=== PATIENT | female | born 1970 ===

== ENCOUNTER 2017-07-21 08:15 | Inpatient (IN) | payer OTHER ==
[~2017-07-21] VITALS: Ht 167.6 cm; Wt 86.2 kg
[2017-07-22] MEDS ORDERED: COZAAR50 MG PO (14:13)
[2017-07-28] MEDS ORDERED: Mylicon 125MG PO (07:38)
[2017-07-28] MEDS ORDERED: DOCUSATE SODIU100 MG PO (07:38)
[2017-07-28] MEDS ORDERED: GABAPENTIN600 MG PO (07:38)
[2017-07-28] MEDS ORDERED: IBUPROFEN600 MG PO (07:38)
== END 2017-07-28 10:53 | disposition home or self-care (01) | DRG 743 ==
LOC: OB/GYN 07-26 06:00 → O/R 07-26 06:00 → OB/GYN 07-26 20:12
PROVIDERS: Obstetrics & Gynecology
PROC: 0DNW0ZZ Release Peritoneum, Open Approach (ICD-10-PCS; 2017-07-26)
PROC: 0UT10ZZ Resection of Left Ovary, Open Approach (ICD-10-PCS; 2017-07-26)
PROC: 0UT90ZZ Resection of Uterus, Open Approach (ICD-10-PCS; principal; 2017-07-26 10:00)
DX: D25.1 Intramural leiomyoma of uterus (principal); D25.2 Subserosal leiomyoma of uterus; I10 Essential (primary) hypertension; N72 Inflammatory disease of cervix uteri; N83.12 Corpus luteum cyst of left ovary; N80.1 Endometriosis of ovary